=== PATIENT | female | born 1965 | race Native Hawaiian/Other Pacific Islander ===

== ENCOUNTER 2017-12-01 14:15 | Emergency (ER) | payer OTHER ==
[2017-12-01 14:36] VITALS: O2SAT 99
[2017-12-01 14:38] VITALS: TEMP 98.7
[2017-12-01] MEDS ORDERED: Sodium Chloride 0.9% 1,000 ML IV ONE (15:01)
[2017-12-01 15:03] LABS: BASO % 0.5 % (0.0-2.0); EOS # 0.2 K/uL (0.0-0.7); EOS % 3.2 % (0.0-4.0); HEMOGLOBIN 13.8 g/dL (11.0-16.0); LYMPH # 2.7 K/uL (1.0-4.3); LYMPH % 43.4 % (20.0-40.0); MEAN CELL VOLUME 83.4 fL (81.0-99.0); MEAN CORPUSCULAR HGB CONC 34.7 g/dL (33.0-37.0); MEAN PLATELET VOLUME 8.2 fL (7.2-11.7); MONO # 0.4 K/uL (0.0-0.8); MONO % 5.9 % (0.0-10.0); NEUT # 2.9 K/uL (1.8-7.0); NRBC % 0.1 % (0.0-2.0); RBC 4.78 Mil/uL (3.80-5.20); RED CELL DISTRIBUTION WIDTH 13.5 % (11.5-14.5); WHITE BLOOD COUNT 6.2 K/uL (4.8-10.8)
[2017-12-01] MEDS ORDERED: Sodium Chloride 0.9% 1,000 ML ONE (15:04)
[2017-12-01 15:15] LABS: ALB/GLOB RATIO 1.1 (1.0-2.1); ALBUMIN 4.6 g/dL (3.5-5.0); ALT/SGPT 32 U/L (9-52); AST/SGOT 30 U/L (14-36); BLOOD UREA NITROGEN 15 mg/dL (7-17); CALCIUM 9.7 mg/dl (8.6-10.4); GFR AFRICAN-AMERICAN > 60; GFR NON-AFRICAN AMERICAN > 60
[2017-12-01 15:37] VITALS: BP 148/87; PULSE 67; RESP 12
--- NOTE | 2017-12-01 17:23 | C.PDOC ---
History Of Present Illness 52 year old female presents to the ED complaining of intermittent bouts of dizziness for 1 day. Denies any pain, blurry/double vision, changes in hearing, chest pain, SOB, fever, or trauma. States that shes had similar episodes in the past and was given PO medication with resolution of symptoms. Time Seen by Provider: 12/01/17 14:35 Chief Complaint (Nursing): Dizziness/Lightheaded History Per: Patient History/Exam Limitations: no limitations Onset/Duration Of Symptoms: Intermittent Episodes Current Symptoms Are (Timing): Still Present Past Medical History Reviewed: Historical Data, Nursing Documentation, Vital Signs Vital Signs: Last Vital Signs Temp 98.7 F 12/01/17 14:18 Pulse 67 12/01/17 15:28 Resp 12 12/01/17 15:28 BP 148/87 12/01/17 15:28 Pulse Ox 99 12/01/17 17:31 - Medical History PMH: HTN Family History: States: No Known Family Hx - Social History Hx Tobacco Use: No Hx Alcohol Use: No Hx Substance Use: No - Immunization History Hx Tetanus Toxoid Vaccination: No Hx Influenza Vaccination: Yes Hx Pneumococcal Vaccination: No Review Of Systems Except As Marked, All Systems Reviewed And Found Negative. Constitutional: Negative for: Fever Eyes: Negative for: Vision Change Cardiovascular: Negative for: Chest Pain Respiratory: Negative for: Shortness of Breath Neurological: Positive for: Dizziness Physical Exam - Physical Exam Appears: Non-toxic, No Acute Distress Skin: Normal Color, Warm, Dry Head: Atraumatic, Normacephalic Eye(s): bilateral: Normal Inspection, PERRL, EOMI Nose: Normal Oral Mucosa: Moist Neck: Normal ROM, Supple Chest: Symmetrical Cardiovascular: Rhythm Regular, No Murmur Respiratory: Normal Breath Sounds, No Rales, No Rhonchi, No Wheezing Gastrointestinal/Abdominal: Soft, No Tenderness, No Distention Extremity: Bilateral: Atraumatic, Normal Color And Temperature, Normal ROM Neurological/Psych: Oriented x3, Normal Speech, Normal Cranial Nerves, Normal Motor, Normal Sensation Gait: Steady ED Course And Treatment - Laboratory Results Result Diagrams: 12/01/17 15:00 12/01/17 15:00 O2 Sat by Pulse Oximetry: 99 (RA) Pulse Ox Interpretation: Normal Medical Decision Making Medical Decision Making: Time: 14:41 Initial Plan: --EKG --CMP --Troponin I --CBC --Reglan 10 mg IVP --IV fluids Progress/Updates: Patient initially refused PO medication secondary to confucianist belief. However, patient agrees to IV medication and fluids. On reevaluation, patient reports improvement in symptoms and is stable for discharge home. Provided with prescription for PO Meclizine and advised to follow up with PMD for further evaluation. Disposition Counseled Patient/Family Regarding: Studies Performed, Diagnosis, Need For Followup, Rx Given - Disposition Referrals: [facility] Bucky Myers, [Non-Staff] - Disposition: HOME/ ROUTINE Disposition Time: 15:25 Condition: IMPROVED Additional Instructions: GLEN HOOPER, thank you for letting us take care of you today. Your provider was Rogelio Lopez DO and you were treated for DIZZINESS. The emergency medical care you received today was directed at your acute symptoms. If you were prescribed any medication, please fill it and take as directed. It may take several days for your symptoms to resolve. Return to the Emergency Department if your symptoms worsen, do not improve, or if you have any other problems. Please contact your doctor or call one of the physicians/clinics you have been referred to that are listed on the Patient Visit Information form that is included in your discharge packet. Bring any paperwork you were given at discharge with you along with any medications you are taking to your follow up visit. Our treatment cannot replace ongoing medical care by a primary care provider outside of the emergency department. Thank you for allowing the [facility] team to be part of your care today. Follow up with your primary care doctor in 2-3 days for re-evaluation and further management. Prescriptions: Meclizine [Meclizine*] 25 mg PO Q6 PRN #20 tab PRN Reason: Dizziness Instructions: Vertigo (a Type of Dizziness) (DC) Forms: [employer] ([employer]) - POA Present On Arrival: None - Clinical Impression Clinical Impression: Vertigo - Scribe Statement The provider has reviewed the documentation as recorded by the Scribe (Christina Castañeda) Provider Attestation: All medical record entries made by the Scribe were at my direction and personally dictated by me. I have reviewed the chart and agree that the record accurately reflects my personal performance of the history, physical exam, medical decision making, and the department course for this patient. I have also personally directed, reviewed, and agree with the discharge instructions and disposition.
--- NOTE | 2017-12-04 15:34 | CARD ---
APPROVED REPORT EKG Measurement Heart [id number] <Conclusion> Normal sinus rhythm Nonspecific T wave abnormality Prolonged QT Abnormal ECG
== END 2017-12-01 16:02 | disposition home or self-care (01) ==
LOC: C.ER 14:15
DX: R42 Dizziness and giddiness (principal)
CPT/HCPCS: 80053; 82948; 84484; 85025; 93005; 96361; 96374; 99285; J2765; J7030